=== PATIENT | female | born 1980 | race Caucasian/White ===

== ENCOUNTER 2017-09-25 01:13 | Emergency (ER) | payer MEDICAID ==
[~2017-09-25] VITALS: Ht 177.8 cm; Wt 96.2 kg
[~2017-09-25 01:13] MED LIST: CLIN-80 PO; MYCOL15O TP
[2017-09-25 01:18] VITALS: BP 141/87
== END 2017-09-25 04:13 | disposition home or self-care (01) ==
LOC: ER 01:13
DX: F29 Unspecified psychosis not due to a substance or known physiological condition (principal); J45.909 Unspecified asthma, uncomplicated; F20.9 Schizophrenia, unspecified; F15.10 Other stimulant abuse, uncomplicated; Z90.49 Acquired absence of other specified parts of digestive tract; Z88.1 Allergy status to other antibiotic agents; Z88.2 Allergy status to sulfonamides; Z91.018 Allergy to other foods; Z91.013 Allergy to seafood; Z88.8 Allergy status to other drugs, medicaments and biological substances; Z56.0 Unemployment, unspecified; Z59.0 Homelessness
CPT/HCPCS: 99284

== ENCOUNTER 2017-11-28 01:48 | Emergency (ER) | payer MEDICAID ==
[~2017-11-28] VITALS: Ht 175.3 cm; Wt 100.0 kg
[~2017-11-28 01:48] MED LIST changes: -CLIN-80 PO; +CLIN300C85 PO
[2017-11-28 03:34] VITALS: BP 131/99
== END 2017-11-28 03:35 | disposition home or self-care (01) ==
LOC: ER 01:50
DX: S51.812A Laceration without foreign body of left forearm, initial encounter (principal); J45.909 Unspecified asthma, uncomplicated; F15.90 Other stimulant use, unspecified, uncomplicated; Z90.49 Acquired absence of other specified parts of digestive tract; Z88.2 Allergy status to sulfonamides; Z88.8 Allergy status to other drugs, medicaments and biological substances; Z88.1 Allergy status to other antibiotic agents; Z91.02 Food additives allergy status; Z79.899 Other long term (current) drug therapy; Z59.0 Homelessness; Z56.0 Unemployment, unspecified; W26.0XXA Contact with knife, initial encounter; Y93.89 Activity, other specified; Y92.89 Other specified places as the place of occurrence of the external cause; Y99.8 Other external cause status
CPT/HCPCS: 99284; A6222; A6449

== ENCOUNTER 2018-11-17 17:19 | Emergency (ER) | payer MEDICAID, OTHER ==
[~2018-11-17] VITALS: Ht 177.8 cm; Wt 93.7 kg
[~2018-11-17 17:19] MED LIST changes: +CLIN-96 PO; -CLIN300C85 PO; +MELO-100 PO
[2018-11-17 17:35] VITALS: BP 119/81
[2018-11-17] MEDS ORDERED: ketorolac tromethamine 15mg/ml inj. IM ONE (19:50)
[2018-11-17] MEDS ORDERED: AMOX-580 PO (20:18)
[2018-11-17] MEDS ORDERED: IBUP-1984 PO (20:18)
== END 2018-11-17 20:44 | disposition home or self-care (01) ==
LOC: ER 17:20
DX: M54.5 Low back pain (principal); J45.909 Unspecified asthma, uncomplicated; F15.90 Other stimulant use, unspecified, uncomplicated; G89.29 Other chronic pain; Z90.49 Acquired absence of other specified parts of digestive tract; Z88.1 Allergy status to other antibiotic agents; Z88.2 Allergy status to sulfonamides; Z91.02 Food additives allergy status; Z59.0 Homelessness; Z56.0 Unemployment, unspecified
CPT/HCPCS: 96372; 99283; J1885

== ENCOUNTER 2022-01-03 08:46 | Emergency (ER) | payer MEDICAID ==
[~2022-01-03] VITALS: Ht 177.8 cm; Wt 9.1 kg
[~2022-01-03 08:46] MED LIST changes: -CLIN-96 PO; +CLIN-97 PO
[2022-01-03] MEDS ORDERED: ketorolac trometh inj. 60 MG/2 ML VIAL IM ONE (11:00)
[2022-01-03] MEDS ORDERED: TRAM50TA2 PO (11:24)
[2022-01-03 12:09] VITALS: BP 130/87
== END 2022-01-03 12:13 | disposition home or self-care (01) ==
LOC: ER 08:46
DX: S10.81 Abrasion of other specified part of neck (principal); M54.50 Low back pain, unspecified; R51.9 Headache, unspecified; R20.0 Anesthesia of skin; J45.909 Unspecified asthma, uncomplicated; Z59.00 Homelessness unspecified; Z56.0 Unemployment, unspecified; Z88.8 Allergy status to other drugs, medicaments and biological substances; Z88.1 Allergy status to other antibiotic agents; Z79.899 Other long term (current) drug therapy; Z79.2 Long term (current) use of antibiotics; X58.XXXD Exposure to other specified factors, subsequent encounter
CPT/HCPCS: 96372; 99283; J1885

== ENCOUNTER 2022-12-22 23:43 | Emergency (ER) | payer MEDICAID ==
[~2022-12-22] VITALS: Ht 176.5 cm; Wt 106.2 kg
[2022-12-22 23:47] VITALS: BP 165/98; TEMP 99.7
--- NOTE | 2022-12-23 00:28 | NUR ---
TERRELL AND MARIA L AT BEDSIDE CASE #[id number]
[2022-12-23 00:59] VITALS: PULSE 98; RESP 16; O2SAT 100
== END 2022-12-23 01:00 ==
LOC: ER 23:45
DX: T65.893A Toxic effect of other specified substances, assault, initial encounter (principal); I10 Essential (primary) hypertension; J45.909 Unspecified asthma, uncomplicated; E11.9 Type 2 diabetes mellitus without complications; G89.29 Other chronic pain; F17.200 Nicotine dependence, unspecified, uncomplicated; F15.90 Other stimulant use, unspecified, uncomplicated; Z56.0 Unemployment, unspecified; Z59.00 Homelessness unspecified; Z90.49 Acquired absence of other specified parts of digestive tract; Z88.8 Allergy status to other drugs, medicaments and biological substances; Z88.1 Allergy status to other antibiotic agents; Z88.2 Allergy status to sulfonamides; Z79.2 Long term (current) use of antibiotics; Z79.899 Other long term (current) drug therapy; Y92.89 Other specified places as the place of occurrence of the external cause
CPT/HCPCS: 99283

== ENCOUNTER 2024-03-09 10:34 | Emergency (ER) | payer MEDICAID ==
[~2024-03-09] VITALS: Ht 175.3 cm; Wt 143.6 kg
[~2024-03-09 10:34] MED LIST changes: -MYCOL15O TP; +NYST15OI TP
[2024-03-09 10:41] VITALS: TEMP 96.2
[2024-03-09 12:10] LABS: BASOPHILS % (AUTO) 0.4 % (0-1); EOSINOPHILS # (AUTO) 0.1 X10'3 (0-0.9); EOSINOPHILS % (AUTO) 3.9 % (0-6); HEMATOCRIT 36.3 % (35.0-45.0); HEMOGLOBIN 11.9 g/dl (12.0-16.0); LYMPHOCYTES # (AUTO) 0.4 X10'3 (1.1-4.8); LYMPHOCYTES % (AUTO) 12.3 % (21-51); MEAN CORPUSCULAR HEMOGLOBIN 27.5 PG (27.0-31.0); MEAN CORPUSCULAR HGB CONC 32.7 g/dL (33.0-36.5); MEAN PLATELET VOLUME 7.6 FL (7.4-10.4); MONOCYTES # (AUTO) 0.6 X10'3 (0-0.9); MONOCYTES % (AUTO) 17.1 % (2-12); NEUTROPHILS # (AUTO) 2.3 X10'3 (1.8-7.7); NEUTROPHILS % (AUTO) 66.3 % (42-75); PLATELET COUNT 154 X10'3 (140-440); RED BLOOD COUNT 4.32 X10'6 (4.20-5.60); RED CELL DISTRIBUTION WIDTH 16.4 % (11.5-14.5); WHITE BLOOD COUNT 3.4 X10'3 (4.5-11.0)
[2024-03-09] MEDS: morphine 4 MG/ML inj SYRINge IV ONE (12:14)
[2024-03-09 12:40] LABS: ALANINE AMINOTRANSFERASE 25 U/L (12-78); ALBUMIN 3.2 G/DL (3.4-5.0); ALBUMIN/GLOBULIN RATIO 0.9 (1.1-1.5); ALKALINE PHOSPHATASE 45 IU/L (46-116); ANION GAP 7 (8-16); ASPARTATE AMINO TRANSFERASE 23 U/L (10-37); BILIRUBIN,TOTAL 0.4 MG/DL (0.1-1.0); BLOOD UREA NITROGEN 11 MG/DL (7-18); BUN/CREATININE RATIO 14.5 (10.0-20.0); CALCIUM 8.5 MG/DL (8.5-10.1); CHLORIDE 108 MMOL/L (99-107); CREATININE 0.76 MG/DL (0.40-0.90); GLUCOSE 88 MG/DL (70-104); POTASSIUM 3.5 MMOL/L (3.5-5.1); SODIUM 141 MMOL/L (135-145); TOTAL CARBON DIOXIDE 26.3 MMOL/L (24-32); TOTAL PROTEIN 6.6 G/DL (6.4-8.2); eCRCL 99 ML/MIN; eGFR 83 ML/MIN
[2024-03-09 13:23] LABS: TOTAL CELLS COUNTED 100
[2024-03-09 13:25] LABS: ANISOCYTOSIS 1+; ELLIPTOCYTES FEW; PLATELET ESTIMATE NORMAL
[2024-03-09] MEDS ORDERED: NYSPWD TP (14:43)
[2024-03-09] MEDS ORDERED: HYDR-3965 PO (14:43)
[2024-03-09] MEDS: clindamycin 600mg/D5W 50ml 50 ML IV ONE (14:57)
[2024-03-09 15:38] VITALS: BP 113/78; PULSE 84; RESP 16; O2SAT 100
[2024-03-09] MEDS ORDERED: CLIN150C2 PO (15:52)
== END 2024-03-09 15:40 | disposition home or self-care (01) ==
LOC: ER 10:35
DX: N61.0 Mastitis without abscess (principal); B37.9 Candidiasis, unspecified; E11.9 Type 2 diabetes mellitus without complications; F20.9 Schizophrenia, unspecified; I10 Essential (primary) hypertension; J45.909 Unspecified asthma, uncomplicated; Z85.3 Personal history of malignant neoplasm of breast; Z88.1 Allergy status to other antibiotic agents; Z88.2 Allergy status to sulfonamides; Z88.8 Allergy status to other drugs, medicaments and biological substances; Z91.030 Bee allergy status; Z90.49 Acquired absence of other specified parts of digestive tract
CPT/HCPCS: 36415; 80053; 83605; 85007; 85025; 87040; 96365; 96375; 99284; J2270; J3490; A6250; A6449

== ENCOUNTER 2024-04-16 13:22 | Emergency (ER) | payer MEDICAID ==
[~2024-04-16] VITALS: Ht 175.3 cm; Wt 143.0 kg
[~2024-04-16 13:22] MED LIST changes: +NYSPWD TP
[2024-04-16 13:46] VITALS: BP 136/92; PULSE 90; O2SAT 99
[2024-04-16 14:24] LABS: URINE HCG NEGATIVE (NEG)
[2024-04-16 14:25] LABS: BILIRUBIN,URINE NEGATIVE (Neg); CLARITY,URINE SLIGHTLY CLOUDY (Clear); COLOR,URINE STRAW (Yellow); GLUCOSE, URINE NEGATIVE (Neg); KETONES,URINE NEGATIVE (Neg); LEUKOCYTE ESTERASE ,URINE NEGATIVE (Neg); NITRITES, URINE NEGATIVE (Neg); OCCULT BLOOD,URINE NEGATIVE (Neg); PROTEIN,URINE NEGATIVE (Neg); UROBILINOGEN,URINE 0.2 E.U/dL (0.2-1.0)
[2024-04-16 14:26] LABS: UA COLLECTION TYPE CLN CATCH MIDSTREAM
[2024-04-16 14:31] LABS: BACTERIA,URINE 1+ /HPF (Neg); MUCUS STRANDS NONE SEEN /LPF (Neg); RBC,URINE NONE SEEN /HPF (0-2); SQUAMOUS EPITHELIAL CELL,UR MANY /LPF (FEW); WBC,URINE 0-4 /HPF (0-4)
[2024-04-16] MEDS ORDERED: LIDO700A32 TOP (15:25)
[2024-04-16 15:26] VITALS: RESP 16
[2024-04-16] MEDS: ketorolac trometh 30MG/ML vial 30 MG/ML VIAL IM ONE (15:26)
[2024-04-16] MEDS: dexamethasone sod phosphate 10mg/ml inj IM STA (15:26)
[2024-04-16] MEDS: cyclobenzaprine 10mg tablet PO ONE (15:27)
[2024-04-16 15:34] VITALS: TEMP 97.8
== END 2024-04-16 15:38 | disposition home or self-care (01) ==
LOC: ER 13:22
DX: S39.012A Strain of muscle, fascia and tendon of lower back, initial encounter (principal); F15.90 Other stimulant use, unspecified, uncomplicated; I10 Essential (primary) hypertension; E11.9 Type 2 diabetes mellitus without complications; J45.909 Unspecified asthma, uncomplicated; G47.30 Sleep apnea, unspecified; F20.9 Schizophrenia, unspecified; G89.29 Other chronic pain; M54.9 Dorsalgia, unspecified; Z98.890 Other specified postprocedural states; Z59.00 Homelessness unspecified; Z56.0 Unemployment, unspecified; Z90.49 Acquired absence of other specified parts of digestive tract; Z88.1 Allergy status to other antibiotic agents; Z88.8 Allergy status to other drugs, medicaments and biological substances; Z91.018 Allergy to other foods; Z79.899 Other long term (current) drug therapy; Z88.2 Allergy status to sulfonamides; X58.XXXA Exposure to other specified factors, initial encounter; Y93.89 Activity, other specified; Y92.89 Other specified places as the place of occurrence of the external cause; Y99.8 Other external cause status
CPT/HCPCS: 72100; 72170; 73610; 73630; 81001; 81025; 96372; 99284; J1100; J1885

== ENCOUNTER 2024-08-08 08:14 | Emergency (ER) | payer MEDICAID ==
[~2024-08-08] VITALS: Ht 177.8 cm; Wt 136.6 kg
[~2024-08-08 08:14] MED LIST changes: +LIDO700A32 TOP
[2024-08-08 08:18] VITALS: BP 117/73; PULSE 88; RESP 18; TEMP 98.3; O2SAT 97
[2024-08-08] MEDS: butalbital 50MG/acetaminophen 300MG/caffeine 40MG (Fioricet) CAPSULE PO ONE (10:01)
[2024-08-08] MEDS: ketorolac trometh 15mg/ml vial 15 MG/ML ML IM ONE (10:01)
== END 2024-08-08 10:11 | disposition home or self-care (01) ==
LOC: ER 08:15
DX: S06.0X0A Concussion without loss of consciousness, initial encounter (principal); S00.83XA Contusion of other part of head, initial encounter; E11.9 Type 2 diabetes mellitus without complications; F20.9 Schizophrenia, unspecified; G47.30 Sleep apnea, unspecified; J45.909 Unspecified asthma, uncomplicated; I10 Essential (primary) hypertension; G89.29 Other chronic pain; M54.9 Dorsalgia, unspecified; F15.90 Other stimulant use, unspecified, uncomplicated; Z88.1 Allergy status to other antibiotic agents; Z88.2 Allergy status to sulfonamides; Z88.8 Allergy status to other drugs, medicaments and biological substances; Z90.49 Acquired absence of other specified parts of digestive tract; Z79.899 Other long term (current) drug therapy; Z59.00 Homelessness unspecified; Z56.0 Unemployment, unspecified; W22.8XXA Striking against or struck by other objects, initial encounter; Y93.89 Activity, other specified; Y92.89 Other specified places as the place of occurrence of the external cause; Y99.8 Other external cause status
CPT/HCPCS: 99282